=== PATIENT | female | born 1990 | race Caucasian/White ===

== ENCOUNTER → 2018-10-28 11:20 | Outpatient (CLI) | payer MEDICAID, SELFPAY ==
[2018-10-28 11:04] VITALS: BMI 31.7
[2018-10-28 11:41] LABS: Absolute Lymphocyte Count 1.32 X10^3/ul (0.83-4.51); Absolute Neutrophil Count 9.8 X10^3/uL (2.0-7.7); Basophil# 0.01 X10^3/uL; Basophil% 0.1 % (0-1); Eosinophil# 0.07 X10^3/uL; Eosinophils% 0.6 % (0-5); Hematocrit 36.6 % (37-47); Hemoglobin 12.1 g/dl (12.0-15.0); Lymphocyte # 1.32 X10^3/ul (4.0); Lymphocyte % 11.2 % (19-41); Mean Corp Hgb Conc 33.1 g/gl (32-36); Mean Corpuscular Hgb 28.2 pg (27.0-32.0); Mean Corpuscular Volume 85.3 fL (81-99); Mean Platelet Vol. 10.9 fl (6.2-12.0); Monocyte# 0.46 X10^3/uL; Monocyte% 3.9 % (0-10); Neutrophil # 9.84 X10^3/uL (2.7-7.7); Neutrophil % 83.9 % (47-70); Platelet Count 220 K/mm3 (150-450); RBC Distribution Width CV 13.2 % (11.6-14.6); RBC Distribution Width SD 40.7 fl (35.1-43.9); Red Blood Count 4.29 M/mm3 (4.2-5.4); White Blood Count 11.7 K/mm3 (4.4-11.0)
[2018-10-28 11:43] LABS: POSITIVE COUNT NO; POSITIVE DIFFERENTIAL NO; POSITIVE MORPHOLOGY NO
== END ==
PROVIDERS: Family Provider Family Medicine; PCP Family Medicine; Referring Provider Nurse Practitioner Women's Health; Visit Provider Nurse Practitioner Women's Health
DX: O09.90 Supervision of high risk pregnancy, unspecified, unspecified trimester (principal); O26.899 Other specified pregnancy related conditions, unspecified trimester; Z67.91 Unspecified blood type, Rh negative; Z3A.00 Weeks of gestation of pregnancy not specified
CPT/HCPCS: 36415; 85025; 86850; 86900

== ENCOUNTER 2018-11-30 18:50 | Outpatient (CLI) | payer MEDICAID, SELFPAY ==
[2018-11-16 15:09] VITALS: BMI 31.7
[2018-11-30 19:02] VITALS: BMI 34.0
[2018-11-30 20:10] LABS: Absolute Lymphocyte Count 1.87 X10^3/ul (0.83-4.51); Basophil# 0.03 X10^3/uL; Basophil% 0.2 % (0-1); Eosinophil# 0.13 X10^3/uL; Eosinophils% 0.9 % (0-5); Hematocrit 34.1 % (37-47); Hemoglobin 11.4 g/dl (12.0-15.0); Lymphocyte # 1.87 X10^3/ul (4.0); Lymphocyte % 12.6 % (19-41); Mean Corp Hgb Conc 33.4 g/gl (32-36); Mean Corpuscular Hgb 27.3 pg (27.0-32.0); Mean Corpuscular Volume 81.8 fL (81-99); Mean Platelet Vol. 10.7 fl (6.2-12.0); Monocyte# 0.72 X10^3/uL; Monocyte% 4.9 % (0-10); Neutrophil # 11.99 X10^3/uL (2.7-7.7); Neutrophil % 81.1 % (47-70); Platelet Count 219 K/mm3 (150-450); RBC Distribution Width CV 12.9 % (11.6-14.6); RBC Distribution Width SD 38.5 fl (35.1-43.9); Red Blood Count 4.17 M/mm3 (4.2-5.4); White Blood Count 14.8 K/mm3 (4.4-11.0)
[2018-11-30 20:11] LABS: POSITIVE COUNT NO; POSITIVE DIFFERENTIAL NO; POSITIVE MORPHOLOGY NO
[2018-11-30 20:21] LABS: Bacteria 0 SEEN /hpf (None Seen); Mucous, Urine 0 SEEN /hpf (<or=2+); Red Blood Cells-Urine 0 SEEN /hpf (0-5); Squamous Epithelial Cells - UA 0 SEEN /hpf (5-10); White Blood Cells 0 SEEN /hpf (0-5)
[2018-11-30 20:21] LABS: ALB/GLOB Ratio 0.8 RATIO (0.9-2.4); AST(SGOT) 42 U/L (15-37); Alanine Aminotransfer ALT/SGPT 56 U/L (13-56); Albumin, Serum 2.9 g/dL (3.2-5.0); Alkaline Phosphatase 102 U/L (45-117); Anion Gap 9 (5-15); BUN 4 mg/dL (7-18); BUN/Creat Ratio 10.8 RATIO (10-20); Calcium,Total 8.6 mg/dL (8.5-10.1); Chloride 109 mmol/L (98-107); Creatinine, Serum 0.37 mg/dL (0.55-1.02); EST Glomerular Filtration Rate 218 mL/min (>60); Est Glom Filt Rate - Afr Amer 264 mL/min (>60); Estimated Creatinine Clearance 232.35 ml/min; Globulin 3.7 g/dL (2.2-4.2); Glucose 78 mg/dL (74-106); Potassium 3.4 mmol/L (3.5-5.1); Protein, Total 6.6 g/dL (6.4-8.2); Sodium Level 138 mmol/L (136-145)
[2018-11-30 20:32] LABS: Color, Urine Yellow (Yellow); Glucose, Dipstick Normal (Normal); Ketone-Dipstick 50 mg/dl (Negative); Leukocyte Esterase-Dipstick Negative /ul (Negative); Nitrite-Dipstick Negative (Negative); Occult Blood-Urine Negative /ul (Negative); Protein-Dipstick Negative (Negative); Urine Bilirubin Dipstick Negative (Negative); Urine Clarity Clear (Clear); Urine Urobilinogen Normal (Normal); Urine pH 6.5 (5.0 - 8.0)
[2018-11-30 20:49] LABS: Creatinine, Urine (random) < 13.00 mg/dL (NO RANGE EST.); Protein, Urine (Random) < 6.0 mg/dL (<11.9)
--- NOTE | 2018-12-09 03:49 | OB.TRI.PN_ITS ---
Progress Notes Date of Service: 11/30/18 Progress Note: Patient presents with contractions no vaginal bleeding or loss of fluid heart tones 130s moderate variability reactive no decelerations category [address] [place]: Irregular contractions Assessment and plan false labor cervix closed DC home labor precautions and kick counts reactive NST Laboratory Studies: Laboratory Tests 11/30/18 11/30/18 11/30/18 Range/Units 20:12 20:12 19:44 WBC (4.4-11.0) K/mm3 RBC (4.2-5.4) M/mm3 Hgb (12.0-15.0) g/dl Hct (37-47) % MCV (81-99) fL MCH (27.0-32.0) pg MCHC (32-36) g/gl RDW (11.6-14.6) % RDW Differential (35.1-43.9) fl Plt Count (150-450) K/mm3 MPV (6.2-12.0) fl Immature Gran % (Auto) (0.0-0.9) % Neut % (Auto) (47-70) % Lymph % (Auto) (19-41) % [place] % (Auto) (0-10) % Eos % (Auto) (0-5) % Baso % (Auto) (0-1) % Absolute Neuts (auto) (2.0-7.7) X10^3/uL Absolute Lymphs (auto) (0.83-4.51) X10^3/ul Total Counted Sodium 138 (136-145) mmol/L Potassium 3.4 L (3.5-5.1) mmol/L Chloride 109 H (98-107) mmol/L Carbon Dioxide 20.0 L (21.0-32.0) mmol/L Anion Gap 9 (5-15) BUN 4 L (7-18) mg/dL Creatinine 0.37 L (0.55-1.02) mg/dL Estim Creat Clear Calc 232.35 ml/min Est GFR (MDRD) Af Amer 264 (>60) mL/min Est GFR (MDRD) Non-Af 218 (>60) mL/min BUN/Creatinine Ratio 10.8 (10-20) RATIO Glucose 78 (74-106) mg/dL Calcium 8.6 (8.5-10.1) mg/dL Total Bilirubin 0.30 (0.20-1.00) mg/dL AST 42 H (15-37) U/L ALT 56 (13-56) U/L Alkaline Phosphatase 102 (45-117) U/L Total Protein 6.6 (6.4-8.2) g/dL Albumin 2.9 L (3.2-5.0) g/dL Globulin 3.7 (2.2-4.2) g/dL Albumin/Globulin Ratio 0.8 L (0.9-2.4) RATIO Urine Color Yellow (Yellow) Urine Clarity Clear (Clear) Urine pH 6.5 (5.0 - 8.0) Ur Specific [place] 1.010 (1.002-1.030) Urine Protein Negative (Negative) mg/dl Urine Glucose (UA) Normal (Normal) mg/dl Urine Ketones 50 H (Negative) mg/dl Urine Occult Blood Negative (Negative) /ul Urine Nitrite Negative (Negative) Urine Bilirubin Negative (Negative) mg/dL Urine Urobilinogen Normal (Normal) mg/dl Ur Leukocyte Esterase Negative (Negative) /ul Urine RBC 0 SEEN (0-5) /hpf Urine WBC 0 SEEN (0-5) /hpf Ur Squamous Epith Cells 0 SEEN (5-10) /hpf Urine Bacteria 0 SEEN (None Seen) /hpf Urine Mucus 0 SEEN (<or=2+) /hpf U Random Total Protein < 6.0 (<11.9) mg/dL Urine Creatinine < 13.00 (NO RANGE EST.) mg/dL Protein/Creatinin Ratio TNP 11/30/18 Range/Units 19:44 WBC 14.8 H (4.4-11.0) K/mm3 RBC 4.17 L (4.2-5.4) M/mm3 Hgb 11.4 L (12.0-15.0) g/dl Hct 34.1 L (37-47) % MCV 81.8 (81-99) fL MCH 27.3 (27.0-32.0) pg MCHC 33.4 (32-36) g/gl RDW 12.9 (11.6-14.6) % RDW Differential 38.5 (35.1-43.9) fl Plt Count 219 (150-450) K/mm3 MPV 10.7 (6.2-12.0) fl Immature Gran % (Auto) 0.300 (0.0-0.9) % Neut % (Auto) 81.1 H (47-70) % Lymph % (Auto) 12.6 L (19-41) % Bath % (Auto) 4.9 (0-10) % Eos % (Auto) 0.9 (0-5) % Baso % (Auto) 0.2 (0-1) % Absolute Neuts (auto) 12.0 H (2.0-7.7) X10^3/uL Absolute Lymphs (auto) 1.87 (0.83-4.51) X10^3/ul Total Counted Not Reportable Sodium (136-145) mmol/L Potassium (3.5-5.1) mmol/L Chloride (98-107) mmol/L Carbon Dioxide (21.0-32.0) mmol/L Anion Gap (5-15) BUN (7-18) mg/dL Creatinine (0.55-1.02) mg/dL Estim Creat Clear Calc ml/min Est GFR (MDRD) Af Amer (>60) mL/min Est GFR (MDRD) Non-Af (>60) mL/min BUN/Creatinine Ratio (10-20) RATIO Glucose (74-106) mg/dL Calcium (8.5-10.1) mg/dL Total Bilirubin (0.20-1.00) mg/dL AST (15-37) U/L ALT (13-56) U/L Alkaline Phosphatase (45-117) U/L Total Protein (6.4-8.2) g/dL Albumin (3.2-5.0) g/dL Globulin (2.2-4.2) g/dL Albumin/Globulin Ratio (0.9-2.4) RATIO Urine Color (Yellow) Urine Clarity (Clear) Urine pH (5.0 - 8.0) Ur Specific [place] (1.002-1.030) Urine Protein (Negative) mg/dl Urine Glucose (UA) (Normal) mg/dl Urine Ketones (Negative) mg/dl Urine Occult Blood (Negative) /ul Urine Nitrite (Negative) Urine Bilirubin (Negative) mg/dL Urine Urobilinogen (Normal) mg/dl Ur Leukocyte Esterase (Negative) /ul Urine RBC (0-5) /hpf Urine WBC (0-5) /hpf Ur Squamous Epith Cells (5-10) /hpf Urine Bacteria (None Seen) /hpf Urine Mucus (<or=2+) /hpf U Random Total Protein (<11.9) mg/dL Urine Creatinine (NO RANGE EST.) mg/dL Protein/Creatinin Ratio
== END 2018-11-30 21:30 | disposition home or self-care (01) ==
LOC: WPOUT 18:56 → WP 18:57
PROVIDERS: Family Provider Family Medicine; PCP Family Medicine; Referring Provider Obstetrics & Gynecology; Visit Provider Obstetrics & Gynecology
DX: O47.9 False labor, unspecified (principal); Z3A.00 Weeks of gestation of pregnancy not specified
CPT/HCPCS: 36415; 59025; 59050; 80053; 81001; 82570; 84156; 85025; 87086; 87088; 94760; 99218; G0378

== ENCOUNTER → 2018-12-21 10:38 | Outpatient (CLI) | payer MEDICAID, SELFPAY ==
[2018-12-21 10:32] VITALS: BMI 34.0
[2018-12-21 12:13] LABS: Rubella IgG 128.4 IU/mL
[2018-12-22 17:08] LABS: HEPATITIS B SURFACE AG Negative (Negative)
[2018-12-25 03:40] LABS: Rapid Plasmin Reagin (RPR) NONREACTIVE (NONREACTIVE)
== END ==
PROVIDERS: Family Provider Family Medicine; PCP Family Medicine; Visit Provider Obstetrics & Gynecology
DX: O09.93 Supervision of high risk pregnancy, unspecified, third trimester (principal); Z3A.00 Weeks of gestation of pregnancy not specified
CPT/HCPCS: 36415; 86592; 86762; 87340

== ENCOUNTER → 2019-01-05 13:48 | Outpatient (CLI) | payer MEDICAID, SELFPAY ==
[2019-01-05 11:10] VITALS: BMI 34.0
== END ==
PROVIDERS: Family Provider Family Medicine; PCP Family Medicine; Referring Provider Obstetrics & Gynecology; Visit Provider Obstetrics & Gynecology
DX: O09.93 Supervision of high risk pregnancy, unspecified, third trimester (principal); Z3A.37 37 weeks gestation of pregnancy
CPT/HCPCS: 87081; 87086; 87088

== ENCOUNTER → 2019-01-07 12:24 | Outpatient (CLI) | payer MEDICAID, SELFPAY ==
[2019-01-05 11:10] VITALS: BMI 34.0
--- NOTE | 2019-01-07 12:26 | US_ITS ---
HISTORY: Assess gestational age. EXAM/TECHNIQUE: US OB Limited 1 Or More Fetus: Transabdominal images. COMPARISON: None. FINDINGS: # of images incl. paperwork: 38 Single fetus in cephalic presentation. cardiac activity observed, heart rate 142 bpm. Posterior grade 3 placenta, no evidence of previa or abruption. Amnionic fluid volume within normal limits. ABEL 7.8. Maternal cervix not visible. Biometry: Biparietal diameter 9.4 cm, 38 weeks 2 days. Head circumference 34.5 cm, 40 weeks 0 days. Abdominal circumference 33.6 cm, 37 weeks 4 days. Femoral length 7.5 cm, 38 weeks 4 days. Estimated weight 3405 g; +/-497 g. age by this ultrasound 38 weeks 5 days, MIHIR 01/16/19. LMP 04/18/18 gives gestational age 37 weeks 5 days and MIHIR 01/23/19. US/OB Limited With Biometrics IMPRESSION: Single intrauterine as above. at 0500 Reported and signed by: Joseph Scott MD Electronically Signed: Joseph Scott, at 4:59 EDT Tel , Service support ,
== END ==
PROVIDERS: Family Provider Family Medicine; PCP Family Medicine; Referring Provider Obstetrics & Gynecology; Visit Provider Obstetrics & Gynecology
DX: O26.849 Uterine size-date discrepancy, unspecified trimester (principal); Z3A.00 Weeks of gestation of pregnancy not specified
CPT/HCPCS: 76816

== ENCOUNTER 2019-01-24 13:35 | Inpatient (IN) | payer MEDICAID, SELFPAY ==
[2019-01-21 14:20] VITALS: BMI 34.0
[2019-01-24 13:39] VITALS: BMI 35.1
[2019-01-24] MEDS: Lactated Ringers 1,000 ML 50 ML IV ×3 (14:05→16:21)
[2019-01-24 14:25] LABS: Absolute Lymphocyte Count 0.82 X10^3/ul (0.83-4.51); Absolute Neutrophil Count 20.4 X10^3/uL (2.0-7.7); Basophil# 0.01 X10^3/uL; Eosinophil# 0.01 X10^3/uL; Hematocrit 35.4 % (37-47); Hemoglobin 11.9 g/dl (12.0-15.0); Lymphocyte # 0.82 X10^3/ul (4.0); Lymphocyte % 3.6 % (19-41); Mean Corp Hgb Conc 33.6 g/gl (32-36); Mean Corpuscular Hgb 26.1 pg (27.0-32.0); Mean Corpuscular Volume 77.6 fL (81-99); Mean Platelet Vol. 11.5 fl (6.2-12.0); Monocyte# 1.19 X10^3/uL; Monocyte% 5.3 % (0-10); Neutrophil # 20.44 X10^3/uL (2.7-7.7); Neutrophil % 90.7 % (47-70); Platelet Count 197 K/mm3 (150-450); RBC Distribution Width CV 14.4 % (11.6-14.6); Red Blood Count 4.56 M/mm3 (4.2-5.4); White Blood Count 22.6 K/mm3 (4.4-11.0)
[2019-01-24 14:27] LABS: POSITIVE COUNT NO; POSITIVE DIFFERENTIAL YES; POSITIVE MORPHOLOGY NO
[2019-01-24 14:28] LABS: Differential Indicated SCAN CRITERIA MET
[2019-01-24 14:50] LABS: Differential Comment SCANNED
--- NOTE | 2019-01-24 15:06 | PCM.HP.OB ---
- Problem List (1) Active labor at term Status: Acute (2) Spontaneous rupture of membranes Status: Acute (3) Rh negative status during Status: Acute Qualifiers: Comment: rhogam PRN and at 28 weeks (4) History of premature rupture of membranes (PPROM) Status: Acute Comment: extensive counseling recommend IM progesterone injections due to history, patient declines (5) Previous delivery affecting Status: Acute Comment: desires TOLAC, consent signed. (6) Status: Acute Qualifiers: Comment: genetic screening normal, anatomy scan normal obtain records from [facility] (7) Supervision of high-risk Status: Acute Qualifiers: Comment: PRR MIHIR 01/23/19 PC Hussein Talavera Levi, [place], Veronica Mike History Date of Admission: 01/24/19 Final MIHIR: 01/23/19 Gestational age: 40 Weeks and 1 Days History of this : This is a 28 year-old, , at 40w1d weeks gestational age sent in active labor at 1 to 2 cm of dilation with clear loss of fluid since 930 this morning. Patient complains of significant discomfort with contractions however resolves and goes away and she is completely comfortable in between contractions. Patient denies any persistent incisional pain or tenderness. She admits some bloody show but no ranulfo vaginal bleeding. Surgical History: Surgical History (Last Reviewed 01/21/19 @ 14:01 by Hoda Foley) delivery delivered O82 x1 PROM Allergies No Known Allergies Allergy (Verified 01/21/19 14:02) Home Medications: Home Medications vitamin#30 30 mg iron-10 mg iron-folic acid 1 mg-omg3 capsule 1 cap PO DAILY cap 09/08/18 Smoking Status: Never smoker Alcohol: None Number of Fetus(es): 1 Heart Tracin minimal to moderate variability no accelerations, upon presentation initially one late deceleration and one prolonged deceleration. There is currently moderate variability with resolution of decelerations but no accelerations present. TOCO Analysis: q2-4 History Past Pregnancies: Past Pregnancies Pregancy History 6 Elective abortions Hx Para 5 Spontaneous abortions Hx # Term Pregnancies Ectopic pregnancies Hx # Pregnancies Multiple births # of living children Past Pregnancies Del. 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 2015 Arianna 27 live - Female Delivery Date: On 09/08/18 @ 11:17 Umm Uribe PROM at 27, breech, chorioamnionitis Expected Delivery Route/Plan TOLAC Specific Issue/Plans flu vaccine: declined tdap vaccine: declined rhogam: given at 28 weeks LARC form signed: declines labor support person: Anabella Padilla/anderson pain management: natural cut cord/dad catch: yes : yes PP control planned: discussed possible routes of delivery and associated risks: avoid if able special requests: Labs: Mom's Problem List Problem Status Onset Code Active labor at term Acute Spontaneous rupture of membranes Acute Mom's Labs & Results 01/24/19 01/24/19 14:03 14:03 WBC 22.6 H RBC 4.56 Hgb 11.9 L Hct 35.4 L MCV 77.6 L MCH 26.1 L MCHC 33.6 RDW 14.4 RDW Differential 39.0 Plt Count 197 MPV 11.5 Immature Gran % (Auto) 0.400 Neut % (Auto) 90.7 H Lymph % (Auto) 3.6 L [place] % (Auto) 5.3 Eos % (Auto) 0.0 Baso % (Auto) 0.0 Absolute Neuts (auto) 20.4 H Absolute Lymphs (auto) 0.82 L Total Counted Not Reportable Differential Comment SCANNED Blood Type Pending Antibody Screen Pending Labs HIV/AIDS Non-Reactive Current Obstetrical History Gestational Diabetes No Incompetent Cervix No Infertility No IUGR No Macrosomia No Hypertension/Pre-eclampsia No Placenta Previa/Abruption No PTL/PROM No Uterine anomaly No Oligohydramnios No Polyhydramnios No Multiple gestation No Past Medical History Asthma No Diabetes No Hypertension No Heart disease No Mitral valve prolapse No Neurologic/Seizure disorder/ No Migraines Kidney disease No Liver disease No Varicosities No Clotting disorders/Hx of DVT No Thyroid Dysfunction No Other medical diseases Yes: Arthritis in knees Psychiatric disorders No Major trauma No Sleep apnea No Mammogram in the last 2 years Yes Social History Smoking Status Never smoker Expected Infant Delivery Method: Review of Systems Constitutional: Denies: Fever, Malaise Eyes: Denies: Blurred vision, Vision Change HEENT: Denies: Head Aches, Visual Changes Cardiovascular: Denies: Chest Pain, Palpitations Respiratory: Denies: Cough, Shortness of Breath, Wheezing Gastrointestinal: Denies: Abdominal Pain, Diarrhea, Nausea, Vomiting Genitourinary: Denies: Dysuria, Hematuria Musculoskeletal: Denies: Joint Pain, Muscle pain Skin: Denies: Lesions, Rash Neurological: Denies: Blurred vision, Focal weakness, Headaches Psychiatric: Denies: Anxiety, Depression Endocrine: Denies: Heat/ Cold Intolerance Hematologic/ Lymphatic: Denies: Easy Bruising, Easy Bleeding Physical Exam General: Alert, Cooperative, No apparent distress HEENT: Atraumatic, Normocephalic. Negative for: Thyromegaly, Lymphadenopathy Cardiovascular: Regular rate Lungs: Normal air movement Abdomen: Soft, Non Tender, Gravid Neurological: Neuro grossly intact PUBLICATIONS DESIGNER: Normal external genitalia. Negative for: Vulvar lesions Estimated gestational size: Appropriate for gestational size Presentation: Cephalic Cervix Dilation (cm): 1.5 Station: -2 Effacement (%): 60 Assessment/Plan All Active Problems (Last Reviewed 01/21/19 @ 14:01 by Hoda Foley) Active labor at term (Acute) Spontaneous rupture of membranes (Acute) Rh negative status during (Acute) History of premature rupture of membranes (PPROM) (Acute) Previous delivery affecting (Acute) (Acute) Supervision of high-risk (Acute) This is a 28 year-old, at 40w1d weeks gestational age presents IAL TOLAC Patient presents in active labor with spontaneous rupture membranes at home at 9:30 AM. IV started and IV fluids running due to tachycardia. Moderate variability present patient positioned on her knees per her request. Extensive discussion was made with the patient and her about their wishes for management during labor. Consent form was reviewed and at the request of the patient and her delivery was removed from the consent form as well as additional information on performing any medically necessary procedures at the time of surgery or procedure. Patient is not consenting to a at this time if it would be needed however after further discussion with the patient and her they state that if it is needed in an emergency they will sign a consent form at this time. Consent form was given to the patient and her to review at present so that way it is ready for them to sign if need be for a delivery with the correct vergabe that they are comfortable with. gbs neg rh negative- rhogam PRN desires minimal intervention. destination coordinator present and cooperative.
--- NOTE | 2019-01-24 17:56 | PCM.PN.BLA ---
Progress Note Position changes were made IUPC catheter was placed and amnioinfusion was started for variable decelerations that were noted. Decelerations resolved with position changes. heart tones 175-180 variability minimal- moderate, no accelerations. cat II tracing. thick meconium noted at 510 and patient checked and noted to be 7 to 8 cm having made a quick change in cervical exam. continue expectant management for eminent delivery
--- NOTE | 2019-01-24 18:04 | PCM.OPRPT ---
Problem List (1) Active labor at term Status: Acute (2) Spontaneous rupture of membranes Status: Acute (3) Rh negative status during Status: Acute Qualifiers: Comment: rhogam PRN and at 28 weeks (4) History of premature rupture of membranes (PPROM) Status: Acute Comment: extensive counseling recommend IM progesterone injections due to history, patient declines (5) Previous delivery affecting Status: Acute Comment: desires TOLAC, consent signed. (6) Status: Acute Qualifiers: Comment: genetic screening normal, anatomy scan normal obtain records from [facility] (7) Supervision of high-risk Status: Acute Qualifiers: Comment: PRR MIHIR 01/23/19 PC Hussein Talavera Levi, [place], Veronica Mike Vaginal Delivery Maternal Presentation: Active Labor 28-year-old G6, P5 at 40 weeks 1 day presents in active labor. She desired a trial of labor after and declined to sign a consent form for section upon admission to the unit. she had spontaneous rupture membranes with clear fluid at 9:30 AM. Patient had regular contractions increasing in frequency and intensity since then. Amniotic Membrane Rupture Type: Spontaneous at home Amniotic Fluid Description: Clear, Thick meconium Final MIHIR: 01/23/19 Gestational age: 40 Weeks and 1 Days Date of Procedure: 01/24/19 Pre-Operative Diagnosis: tolac, meconium Post-Operative Diagnosis: Surgery/ Procedure Performed: Spontaneous Vaginal Delivery Type of Anesthesia: None Presentation: CORIE Placental Delivery Description: Spontaneous Placenta Disposition: [facility] Cord Vessel Description: 3 Vessels Nuchal Cord Compression: With compression Cord Gases drawn per routine: ABG, VBG Cord Entanglement: Around neck x 2, tight Estimated Blood Loss: 250 A gender: Male Episiotomy Description: None Laceration: None Complications: - - meconium at , cord pH at arterial 7.126, BE -10
--- NOTE | 2019-01-24 19:03 | DCINST_ITS ---
Discharge Diet: No Restrictions Discharge Activity: Return to Normal Activity, May not drive while taking narcotic pain medications., May Shower May resume sexual activity in: 4-6 weeks Call your doctor if your incision/area has: Continuous Slow Oozing, Sudden Increased Bleeding, Increased Pain/ Swelling, Increased Redness, Foul Smelling Discharge Additional Instructions: If you experience any of the following, contact your healthcare provider. * Bleeding that soaks a pad every hour for 2 hours * Fever 100.4 or higher * Unrelieved incision or abdominal pain * Swelling, redness, discharge or bleeding from your incision or episiotomy site * Your incision begins to separate * Problems urinating (including inability to urinate or burning while urinating). * Visual changes * Severe headache * Flu-like symptoms * Pain or redness in one of both of your breasts * Pain, warmth, tenderness or swelling in your legs, especially the calf area * Frequent nausea and vomiting * Symptoms of depression or anxiety If you experience any of the following, call 911 or go to the nearest Emergency Room. * Chest pain * Problems breathing * Seizure activity * Partial or complete paralysis of a body part, slurred speech, weakness or drooping of the face, or a sudden inability to walk or hold your balance Allergies/Adverse Reactions: Allergies No Known Allergies Allergy (Verified 01/21/19 14:02) Medications to take at Discharge vitamin#30 30 mg iron-10 mg iron-folic acid 1 mg-omg3 capsule 1 cap PO DAILY cap 09/08/18 Please Follow Up With: Umm Uribe MD - [phone] When: Call to make an appointment with your doctor in 6 weeks. If you had elevated Blood pressure or 4th degree laceration you will need to be seen in 2 weeks. Primary Care Physician: Kade Welsh MD [Primary Care Provider] - Test Results: Test results from this visit will be discussed in further detail at your follow- up appointment, if applicable.
--- NOTE | 2019-01-24 19:03 | PCM.DCVAG ---
Discharge Diet: No Restrictions Discharge Activity: Return to Normal Activity, May not drive while taking narcotic pain medications., May Shower May resume sexual activity in: 4-6 weeks Call your doctor if your incision/area has: Continuous Slow Oozing, Sudden Increased Bleeding, Increased Pain/ Swelling, Increased Redness, Foul Smelling Discharge Additional Instructions: If you experience any of the following, contact your healthcare provider. Bleeding that soaks a pad every hour for 2 hours Fever 100.4 or higher Unrelieved incision or abdominal pain Swelling, redness, discharge or bleeding from your incision or episiotomy site Your incision begins to separate Problems urinating (including inability to urinate or burning while urinating). Visual changes Severe headache Flu-like symptoms Pain or redness in one of both of your breasts Pain, warmth, tenderness or swelling in your legs, especially the calf area Frequent nausea and vomiting Symptoms of depression or anxiety If you experience any of the following, call 911 or go to the nearest Emergency Room. Chest pain Problems breathing Seizure activity Partial or complete paralysis of a body part, slurred speech, weakness or drooping of the face, or a sudden inability to walk or hold your balance Allergies/Adverse Reactions: Allergies No Known Allergies Allergy (Verified 01/21/19 14:02) Medications to take at Discharge vitamin#30 30 mg iron-10 mg iron-folic acid 1 mg-omg3 capsule 1 cap PO DAILY cap 09/08/18 Please Follow Up With: Umm Uribe MD - [phone] When: Call to make an appointment with your doctor in 6 weeks. If you had elevated Blood pressure or 4th degree laceration you will need to be seen in 2 weeks. Primary Care Physician: Kade Welsh MD [Primary Care Provider] - Test Results: Test results from this visit will be discussed in further detail at your follow-up appointment, if applicable.
--- NOTE | 2019-01-24 19:15 | NURSING ---
Report given to Macy Inman RN. She will assume care of patient at this time. Patient up to nursery in wheelchair to visit .
[2019-01-24 21:28] VITALS: BP 121/60; PULSE 81; RESP 17; TEMP 36.7
--- NOTE | 2019-02-01 16:59 | NURSING ---
Voicemail left. Baby transferred to [facility]. Joana CARRERA
== END 2019-01-24 22:12 | disposition home or self-care (01) | DRG 560 ==
PROVIDERS: Admitting Provider Obstetrics & Gynecology; Family Provider Family Medicine; PCP Family Medicine; Referring Provider Obstetrics & Gynecology; Visit Provider Obstetrics & Gynecology
DX: O34.219 Maternal care for unspecified type scar from previous cesarean delivery (principal); O69.1XX0 Labor and delivery complicated by cord around neck, with compression, not applicable or unspecified; O76 Abnormality in fetal heart rate and rhythm complicating labor and delivery; O77.0 Labor and delivery complicated by meconium in amniotic fluid; M17.0 Bilateral primary osteoarthritis of knee; Z67.91 Unspecified blood type, Rh negative; Z3A.40 40 weeks gestation of pregnancy; Z37.0 Single live birth
CPT/HCPCS: 59025; 59050; 85025; 85461; 86850; 86900; 90384; 99218; J7120; G0378; J2790

== ENCOUNTER → 2019-02-26 16:31 | Outpatient (CLI) | payer MEDICAID, SELFPAY ==
[2019-02-26 14:09] VITALS: BMI 35.1
[2019-03-04 10:39] LABS: HPV APTIMA, High Risk Negative (Negative)
== END ==
PROVIDERS: Family Provider Family Medicine; PCP Family Medicine; Referring Provider Obstetrics & Gynecology; Visit Provider Obstetrics & Gynecology
DX: Z12.4 Encounter for screening for malignant neoplasm of cervix (principal)
CPT/HCPCS: 87624; 88175; G0145

== ENCOUNTER 2019-04-12 21:02 | Emergency (ER) | payer MEDICAID, SELFPAY ==
[2019-03-24 11:02] VITALS: BMI 31.3
[2019-04-12 21:02] VITALS: BP 143/89; PULSE 53; RESP 16; TEMP 36.2; O2SAT 98; BMI 31.1
--- NOTE | 2019-04-12 21:22 | ED.VIS.GEN ---
History of Present Illness Chief Complaint: Diarrhea Informant: Patient Onset: Days Context: Gradual Onset Timing: Intermittent Current Severity: Moderate Maximum Severity: Moderate Narrative: The patient presents to the emergency department diarrhea. Her recently traveled from [place] and was found to have traveler's diarrhea. She states that he was treated with Cipro and was doing better. Over the past 3 days, she is began have diarrhea. She describes some abdominal cramping. She denies any fevers or chills. She denies any recent travel. She is otherwise been in her normal state of health. Prior similar symptoms: No Recent Illness/Hospitalization: No Past Medical History - Allergies and Home Meds Allergies/Adverse Reactions: Allergies No Known Allergies Allergy (Verified 03/24/19 11:02) Primary Care Physician: Kade Welsh MD [Primary Care Provider] - Prior records reviewed: Yes Surgical History: no surgical history Lives: With Family Smoking Status: Never smoker Review of Systems General: Denies: Chills, Fever, Sweats Eyes: Denies: Visual changes - bilaterally, Diplopia ENT: Denies: Rhinorrhea, Sore throat Cardiovascular: Denies: Chest pain, Palpitations Respiratory: Denies: Dyspnea, Cough, Dyspnea on exertion Gastrointestinal: Reports: Abdominal pain, Diarrhea Genitourinary: Denies: Dysuria, Hematuria, Frequency Musculoskeletal: Denies: Back pain, Extremity Pain Skin: Denies: Rash, Wounds Neurological: Denies: Headache, Weakness, Numbness Physical Exam Vital Signs/Narrative: Vital Signs Temp Pulse Resp BP Pulse Ox 04/12/19 21:02 97.1 F L 53 L 16 143/89 H 98 General: Well nourished, Well developed, No Acute Distress Head: Normocephalic, Atraumatic Eyes: Perrl, EOMI ENT: Moist mucous membranes, No rhinorrhea Neck: Supple, Nontender Cardiovascular: Regular rate, Regular rhythm, No murmurs Respiratory: No distress, CTA bilaterally, Chest nontender Abdomen: Soft, Nontender, Nondistended, Normal bowel sounds Back: Nontender, Normal Inspection Extremities: Nontender, No edema Skin: Normal color, No rash Neurological: Alert, Oriented x3, Cranial nerves II-XII grossly intact, Normal Strength, Normal Sensation Psychological: Normal affect, Normal Mood Diagnostic/Tx/Re-eval - Medical Decision Making Patient presents with diarrhea with positive exposure to traveler's diarrhea. Her abdomen is soft and nontender. I did discuss options with the patient she just wants to attempt outpatient therapy. I feel this is reasonable. She is not tachycardic. She does not have a fever. Patient will be started on Cipro and continued on this for 5 days. She was counseled on concerning symptoms and reasons to return. She will be discharged home. Impression 1. Traveler's diarrhea ED Disposition - Plan for ED Patient: Instructions: DIARRHEA, Bacterial (4y-Adult) Prescriptions: Ciprofloxacin [Cipro] 500 mg PO BID #10 tab Prescription Printed Referrals: Kade Welsh MD [Primary Care Provider] -
[2019-04-12] MEDS: Ciprofloxacin 500 MG Tablet PO (21:38)
== END 2019-04-12 21:39 | disposition home or self-care (01) ==
LOC: ED 21:16
PROVIDERS: Emergency Provider Emergency Medicine; Family Provider Family Medicine; PCP Family Medicine
DX: R19.7 Diarrhea, unspecified (principal)
CPT/HCPCS: 99283

== ENCOUNTER → 2020-06-01 14:17 | Outpatient (CLI) | DX: Z67.91 Unspecified blood type, Rh negative (principal) | CPT/HCPCS: 36415; 86850; 86900; 86901 ==

== ENCOUNTER → 2020-07-10 11:04 | Outpatient (CLI) | payer MEDICAID, SELFPAY ==
[2020-06-01 13:51] VITALS: BMI 27.1
[2020-07-10 11:36] LABS: hCG Titer Quant., Serum 237 mIU/mL (1-3)
== END ==
PROVIDERS: Referring Provider Obstetrics & Gynecology; Visit Provider Obstetrics & Gynecology
DX: N91.2 Amenorrhea, unspecified (principal)
CPT/HCPCS: 36415; 84702

== ENCOUNTER → 2020-07-12 06:24 | Outpatient (CLI) | payer MEDICAID, SELFPAY ==
[2020-06-01 13:51] VITALS: BMI 27.1
[2020-07-12 08:37] LABS: hCG Titer Quant., Serum 524 mIU/mL (1-3)
== END ==
PROVIDERS: Referring Provider Obstetrics & Gynecology; Visit Provider Obstetrics & Gynecology
DX: Z34.90 Encounter for supervision of normal pregnancy, unspecified, unspecified trimester (principal)
CPT/HCPCS: 36415; 84702

== ENCOUNTER → 2020-08-07 | Outpatient (CLI) | payer MEDICAID, SELFPAY ==
[2020-08-07 09:27] VITALS: BMI 24.6
[2020-08-07 13:50] LABS: Amphetamine Urine VISTA NEGATIVE (<1000 ng/mL); Barbiturate Urine VISTA NEGATIVE (< 200 ng/mL); Benzodiazepine Urine VISTA NEGATIVE (< 200 ng/mL); Cocaine Urine VISTA NEGATIVE (< 300 ng/mL); Ecstacy Urine VISTA NEGATIVE (< 500 ng/mL); Methadone Urine VISTA NEGATIVE (< 300 ng/mL); PCP Urine VISTA NEGATIVE (< 25 ng/mL); THC Urine VISTA NEGATIVE (< 50 ng/mL); Vista UDS pH Range 6
== END | disposition home or self-care (01) ==
LOC: LABSPEC 12:57
PROVIDERS: Referring Provider Obstetrics & Gynecology; Visit Provider Obstetrics & Gynecology
DX: Z34.90 Encounter for supervision of normal pregnancy, unspecified, unspecified trimester (principal)
CPT/HCPCS: 80307; 87086; 87088

== ENCOUNTER → 2020-08-21 06:53 | Outpatient (CLI) | payer MEDICAID, SELFPAY ==
[2020-08-07 09:27] VITALS: BMI 24.6
[2020-08-21 07:23] LABS: Absolute Lymphocyte Count 1.66 X10^3/uL (0.83-4.51); Absolute Neutrophil Count 5.4 X10^3/uL (2.0-7.7); Basophil# 0.03 X10^3/uL; Basophil% 0.4 % (0-1); Eosinophil# 0.11 X10^3/uL; Eosinophils% 1.4 % (0-5); Hematocrit 35.8 % (37-47); Hemoglobin 12.1 g/dL (12.0-15.0); Lymphocyte # 1.66 X10^3/ul (4.0); Lymphocyte % 21.8 % (19-41); Mean Corp Hgb Conc 33.8 g/dL (32-36); Mean Corpuscular Hgb 28.9 pg (27.0-32.0); Mean Corpuscular Volume 85.6 fL (81-99); Mean Platelet Vol. 11.8 fl (6.2-12.0); Monocyte# 0.34 X10^3/uL; Monocyte% 4.5 % (0-10); NRBC Flagged by Analyzer 0 % (0-5); Neutrophil # 5.44 X10^3/uL (2.7-7.7); Neutrophil % 71.5 % (47-70); Platelet Count 201 K/mm3 (150-450); RBC Distribution Width SD 40.2 fl (35.1-43.9); Red Blood Count 4.18 M/mm3 (4.2-5.4); White Blood Count 7.6 K/mm3 (4.4-11.0)
[2020-08-21 07:59] LABS: NATERA MAILED SPECIMEN
[2020-08-21 08:30] LABS: HIV - WCH Non-Reactive (Nonreactive); Hepatitis B Surface Antigen Non-Reactive (Nonreactive); Hepatitis C Antibody Non-Reactive (Nonreactive); Rubella IgG Reactive (Nonreactive)
[2020-08-24 01:36] LABS: Rapid Plasmin Reagin (RPR) NONREACTIVE (NONREACTIVE)
== END ==
PROVIDERS: Referring Provider Obstetrics & Gynecology; Visit Provider Obstetrics & Gynecology
DX: Z34.81 Encounter for supervision of other normal pregnancy, first trimester (principal)
CPT/HCPCS: 36415; 85025; 86592; 86703; 86762; 86803; 86850; 86900; 86901; 87340

== ENCOUNTER → 2020-10-06 | Outpatient (CLI) | payer MEDICAID, SELFPAY ==
[2020-10-06 09:17] VITALS: BMI 28.4
[2020-10-06 15:42] LABS: Chlamydia Trachomatis by PCR Negative (Negative); Neisserai gonorrhoeae by PCR Negative (Negative); Probe Check PASS; Sample Adequacy Control PASS; Specimen Processing Control PASS
== END | disposition home or self-care (01) ==
LOC: LABSPEC 12:54
PROVIDERS: Referring Provider Obstetrics & Gynecology; Visit Provider Obstetrics & Gynecology
DX: Z34.90 Encounter for supervision of normal pregnancy, unspecified, unspecified trimester (principal)
CPT/HCPCS: 87491; 87591

== ENCOUNTER → 2020-10-26 11:27 | Outpatient (CLI) | payer MEDICAID, SELFPAY ==
[2020-10-06 09:17] VITALS: BMI 28.4
--- NOTE | 2020-10-26 11:28 | US_ITS ---
STUDY: SECOND AND THIRD TRIMESTER OBSTETRICAL ULTRASOUND REASON FOR EXAM: Female, 30 years old routine survey LMP: 06/12/2020 TECHNIQUE: Transabdominal and Transvaginal TECHNICAL QUALITY: Adequate. PRIOR ULTRASOUND: None. FINDINGS: There is a single intrauterine fetus. The fetus is in a cephalic presentation. There is demonstrated cardiac activity with a heart rate of 162 bpm. There is a normal amniotic fluid volume. The largest amniotic fluid pocket measures 4.5 cm. . The placenta is anterior in location and is not low lying. There are Grade 0 placental changes. The cervix measures 4.77 cm in length. The bilateral adnexal regions are normal. BIOMETRY: BPD: 4.5 cm: 19 weeks, 4 days HC: 16.9 cm: 19 weeks, 4 days AC: 15.33 cm: 20 weeks, 3 days FL: 2.79 cm: 18 weeks, 3 days age by current US: 19 weeks, 2 days. MIHIR by current US: 03/20/2021. Estimated weight: 306 grams, +/- 46 grams, 57.8 %. ANATOMY: Gender: Male Cranium: Normal lateral ventricles. Normal choroid plexus. Normal cerebellum. Normal cisterna magna. Normal face, nose and lips. Chest: Normal 4-chamber heart. Abdomen/Pelvis: Normal diaphragm. Normal stomach. Normal abdominal wall. Normal cord insertion. Normal 3 vessel cord. Normal kidneys. Renal pelves are mildly dilated both measuring 0.4 cm. Normal bladder. Spine: Normal cervical spine. Normal thoracic spine. Normal lumbar spine. Normal sacrum. Extremities: Normal bilateral upper extremities. Normal bilateral lower extremities. US/OB Anatomy Scan IMPRESSION: Single live intrauterine at 19 weeks, 2 days by current ultrasound MIHIR of 03/20/2021. Heart rate of 162 bpm. No suspicious sonographic findings, incidental note is made of mildly dilated renal pelves at 0.4 cm. Electronically Signed: Fady Francois MD at 17:16 EST , Service support ,
== END ==
PROVIDERS: Referring Provider Obstetrics & Gynecology; Visit Provider Obstetrics & Gynecology
DX: O09.90 Supervision of high risk pregnancy, unspecified, unspecified trimester (principal); Z34.90 Encounter for supervision of normal pregnancy, unspecified, unspecified trimester
CPT/HCPCS: 76805; 76817

== ENCOUNTER → 2020-12-25 11:05 | Outpatient (CLI) | payer MEDICAID, SELFPAY ==
[2020-10-06 09:17] VITALS: BMI 28.4
[2020-11-30 09:19] VITALS: BMI 31.3
--- NOTE | 2020-12-25 11:06 | US_ITS ---
STUDY: SECOND AND THIRD TRIMESTER OBSTETRICAL ULTRASOUND - LIMITED REASON FOR EXAM: Female, 30 years old growth at 28 weeks/ recheck hydronephrosis LMP: PRIOR ULTRASOUND: 10/26/2020 TECHNIQUE: Transabdominal TECHNICAL QUALITY: Adequate. FINDINGS: There is a single intrauterine fetus. The fetus is in a cephalic presentation. There is demonstrated cardiac activity with a heart rate of 147 bpm. There is a normal amniotic fluid volume. The largest amniotic fluid pocket measures 4.7 cm. The amniotic fluid index (ABEL) is cm. The placenta is anterior in location and is not low lying. There are Grade 1 placental changes. The cervix measures 5.5 cm cm in length. BIOMETRY: BPD: 7.3 cm: 29 weeks, 1 days HC: 26.7 cm: 29 weeks, 0 days AC: 24.8 cm: 29 weeks, 0 days FL: 5.4 cm: 28 weeks, 4 days Age by LMP: 28 weeks, 0 days. MIHIR by LMP: 03/19/2021. age by current US: 28 weeks, 5 days. MIHIR by current US: 03/14/2021. Estimated weight: 1321 grams, +/- 198 grams, 75 percentile. Gender: US/OB Limited With Biometrics IMPRESSION: Living intrauterine of 28 weeks 5 days as described above. Electronically Signed: William Longoria MD at 17:17 EDT Tel , Service support ,
== END ==
PROVIDERS: Referring Provider Obstetrics & Gynecology; Visit Provider Obstetrics & Gynecology
DX: O09.90 Supervision of high risk pregnancy, unspecified, unspecified trimester (principal); Z87.59 Personal history of other complications of pregnancy, childbirth and the puerperium; N13.30 Unspecified hydronephrosis
CPT/HCPCS: 76816

== ENCOUNTER → 2020-12-28 09:33 | Outpatient (CLI) | payer MEDICAID, SELFPAY ==
[2020-12-28 09:04] VITALS: BMI 31.3
[2020-12-28 09:46] LABS: Absolute Lymphocyte Count 1.14 X10^3/uL (0.83-4.51); Absolute Neutrophil Count 6.4 X10^3/uL (2.0-7.7); Basophil# 0.02 X10^3/uL; Basophil% 0.2 % (0-1); Eosinophil# 0.08 X10^3/uL; Hematocrit 38.2 % (37-47); Hemoglobin 12.4 g/dL (12.0-15.0); Lymphocyte # 1.14 X10^3/ul (0.83-4.51); Lymphocyte % 14.2 % (19-41); Mean Corp Hgb Conc 32.5 g/dL (32-36); Mean Corpuscular Hgb 29.4 pg (27.0-32.0); Mean Corpuscular Volume 90.5 fL (81-99); Mean Platelet Vol. 11.3 fl (6.2-12.0); Monocyte# 0.33 X10^3/uL; Monocyte% 4.1 % (0-10); NRBC Flagged by Analyzer 0 % (0-5); Neutrophil # 6.41 X10^3/uL (2.7-7.7); Neutrophil % 79.8 % (47-70); Platelet Count 177 K/mm3 (150-450); RBC Distribution Width CV 12.6 % (11.6-14.6); RBC Distribution Width SD 40.9 fl (35.1-43.9); Red Blood Count 4.22 M/mm3 (4.2-5.4)
== END ==
PROVIDERS: Referring Provider Obstetrics & Gynecology; Visit Provider Obstetrics & Gynecology
DX: Z34.92 Encounter for supervision of normal pregnancy, unspecified, second trimester (principal); Z3A.24 24 weeks gestation of pregnancy
CPT/HCPCS: 36415; 85025; 86850; 86900; 86901

== ENCOUNTER 2021-01-02 23:10 | Outpatient (CLI) | payer MEDICAID, SELFPAY ==
[2020-12-28 09:04] VITALS: BMI 31.3
[2021-01-02 23:22] VITALS: BMI 29.7
[2021-01-02 23:37] VITALS: BP 128/74; PULSE 78; TEMP 36.7; O2SAT 98
[2021-01-02 23:58] LABS: ROM Internal Control Test YES-OK TO RESULT pt. (Internal QC); ROM Patient Test Negative (Negative)
[2021-01-03 00:39] VITALS: BP 128/74; PULSE 78; RESP 18; TEMP 36.7
--- NOTE | 2021-01-05 07:50 | OB.TRI.HP_ITS ---
HPI - General HPI Narrative SCOTT GOMEZ, is a 30 F who presents questionable loss of fluid. She states she was in her kitchen and felt several trickles and they were mucousy but she has a history of a 28-week P PROM therefore she presented for evaluation. Patient denies any persistent leaking or any regular contractions. She denies any vaginal bleeding admits good movement. Maternal Data Information MIHIR Calculator Estimated Delivery Date Method Current WG Current Estimate 03/19/21 LMP (Certain) 29w 4d PFSH Medical History (Updated 01/05/21 @ 07:[address] Umm Uribe MD) Rheumatoid arthritis Home Medications vitamin#30 30 mg iron-10 mg iron-folic acid 1 mg-omg3 capsule 1 cap PO DAILY cap 09/08/18 [History Last Taken 01/01/21 21:00] blood sugar diagnostic #100 each 11/03/20 [Rx Last Taken Unknown] blood-glucose meter #1 each 11/03/20 [Rx Last Taken Unknown] lancets 33 gauge #100 each 11/03/20 [Rx Last Taken Unknown] folic acid 0.8 mg PO DAILY 01/03/21 [History Last Taken 01/01/21 21:00] Allergy/AdvReac Type Severity Reaction Status Date / Time No Known Allergies Allergy Verified 01/02/21 23:26 Family History Grandmother Breast cancer Cancer Brain Grandfather Cancer Pancreatic Surgical History H/O section Social History adopted: No household members: family housing: house number of children: 5 Smoking Status: Never smoker alcohol intake: never substance use type: does not use caffeine: Yes what type of physical activity do you participate in: walking seatbelt use: always do you feel safe at home: Yes additional social history: Walter Eid Patient works from home History 8 Elective abortions Hx Para 6 Spontaneous abortions 1 Hx # Term Pregnancies Ectopic pregnancies Hx # Pregnancies Multiple births # of living children 5 Past Pregnancies Del. Date Name GA/Weeks Outcome Route Bth Weight Infant Gen Labor Lgth Anesthesia Del Locatn Provider FOB Unknown 2008 Sadaf 41 live - full term 7lbs Male Home Director Labor Standards Unknown 2010 Hussein 42 live - full term 8lbs 13oz Male Home Director Labor Standards Unknown 2011 Keaton 39 live - full term 8lbs 5oz Male Home Director Labor Standards Unknown 2013 Jessica 40 live - full term 7lbs 14oz Femal e Home Director Labor Standards Unknown 2015 Arianna 27 live - 1lbs 9.7oz Fema le 01/24/19 Melvin 40 live - full term 7lbs 10oz Male harlan Delivery Date: No notes to display Delivery Date: No notes to display Delivery Date: No notes to display Delivery Date: No notes to display Delivery Date: PROM at 27, breech, chorioamnionitis Umm Uribe Delivery Date: 01/24/19 H. flu sepsis, meconium aspiration- 1 week age Umm Uribe Visit Details Expected Delivery Route/Plan with plan weekly NSTs and growth us at 36 weeks patient counseled regarding risks/benefits of trial of labor versus repeat . ACOG/uptodate education given to patient. 95 % likelihood of success per calculator TOLAC consent form signed: [] Labor Preferences- labor support person: Mike labor intervention preferences: minimal pain management options preferred: minimal intervention cut cord/dad catch: yes : yes PP control planned: [] discussed possible routes of delivery and associated risks: [] special requests: [] Plans flu vaccine: declined tdap vaccine: declined rhogam: given 12/28 LARC form signed: [] movement and labor precautions reviewed. Problem list reviewed and updated with the most current plan of care details and appropriate orders placed. Relevant counseling for the gestational age provided. Continue routine care and follow up unless otherwise noted in visit notes/problem list details OB Flowsheet Initial Weight: 167 lb Date -?-?-?-?-?-?-?-?-?-?-?-?- EGA Weight BP Urine Prot -?-?-?-?-?-?-?-?-?-?-?-?- Glucose FHR FuHt Pres Dilation -?-?-?-?-?-?-?-?-?-?-?-?- Effaced St Visit Note 08/07/20 -?-?-?-?-?-?-?-?-?-?-?-?- 8w 0d 167 lb (+0 oz) 110/76 -?-?-?-?-?-?-?-?-?-?-?-?- 170 -?-?-?-?-?-?-?-?-?-?-?-?- SM- no vb lof cr amping doing well. CRL cons with LMP 1.45cm 09/08/20 -?-?-?-?-?-?-?-?-?-?-?-?- 12w 4d 170 lb (+3 lb) 120/74 Negative -?-?-?-?-?-?-?-?-?-?-?-?- Negative 155 -?-?-?-?-?-?-?-?-?-?-?-?- SM- no vb crampi ng feeling good, low anxiety. had discussion with and declining MFM consultation, but open to increased testing at end of . 10/06/20 -?-?-?-?-?-?-?-?-?-?-?-?- 16w 4d 176 lb (+9 lb) 124/70 -?-?-?-?-?-?-?-?-?-?-?-?- 150 16 -?-?-?-?-?-?-?-?-?-?-?-?- SM- no vb lof no regular ctx 11/03/20 -?-?-?-?-?-?-?-?-?-?-?-?- 20w 4d 185 lb (+18 lb) 124/68 Negative -?-?-?-?-?-?-?-?-?-?-?-?- Negative 150 20 -?-?-?-?-?-?-?-?-?-?-?-?- SM- no vb lof oc casional palpitations discussed anatomy us 11/30/20 -?-?-?-?-?-?-?-?-?-?-?-?- 24w 3d 194 lb (+27 lb) 130/70 Negative -?-?-?-?-?-?--?-?-?-?-?-?- Negative 140 24 -?-?-?-?-?-?-?-?-?-?-?-?- SM- no vb SM- no vb, lof good fm no re gular ctx 12/28/20 -?-?-?-?-?-?-?-?-?-?-?-?- 28w 3d 197 lb (+30 lb) 100/70 -?-?-?-?-?-?-?-?-?-?-?-?- 140 30 -?-?-?-?-?-?-?-?-?-?-?-?- SM- no vb lof go od fm no regular ctx doing well plan testing starting at 36 weeks 01/02/21 -?-?-?-?-?-?-?-?-?-?-?-?- 29w 2d 201 lb 4.513 oz (+34 lb 4.513 oz) 128/74 128/74 -?-?-?-?-?-?-?-?-?-?-?-?- -?-?-?-?-?-?-?-?-?-?-?-?- ROS Constitutional Constitutional: Reports as per HPI Cardiovascular Cardiovascular: Reports systems reviewed and no addt'l complaints, except as documented Respiratory/Chest Respiratory/Chest: Reports systems reviewed and no addt'l complaints, except as documented Gastrointestinal Gastrointestinal: Reports as per HPI Physical Exam Narrative Ultrasound performed spontaneous movement as well as normal ABEL seen. Const alert, oriented x3 and no apparent distress HEENT Head and Scalp: normocephalic and atraumatic Neck full ROM and no lymphadenopathy Chest inspection of chest normal Resp normal respiratory effort GI GI Narrative: gravid, abdomen nontender, AGA Neuro no focal motor deficits NST FHR Rate Baby A Baseline: 140 Variability:: Moderate Accelerations:: 15 x 15 Decelerations:: None NST Reactive:: Yes FHR Category:: Category I Uterine Activity:: no regular Assessment & Plan Assessment/Plan (1) Supervision of high risk , antepartum: (2) : QUALIFIERS: Weeks of gestation: 24 weeks Qualified Code(s): Z3A.24 - 24 weeks gestation of (3) Intact amniotic membranes: QUALIFIERS: Trimester: third trimester Qualified Code(s): Z34.93 - Encounter for supervision of normal , unspecified, third trimester Multi Select Codes Visit Charges Office Visit/Consults: 77449 OV L3 Est Urinary/Genital Urinary/Genital CPT Codes: 30867-28 non-stress test Interp
== END 2021-01-03 00:40 ==
LOC: WPOUT 23:16 → OBT 23:17
PROVIDERS: Visit Provider Obstetrics & Gynecology
DX: O09.892 Supervision of other high risk pregnancies, second trimester (principal); O26.892 Other specified pregnancy related conditions, second trimester; M06.9 Rheumatoid arthritis, unspecified; O34.219 Maternal care for unspecified type scar from previous cesarean delivery; Z3A.24 24 weeks gestation of pregnancy
CPT/HCPCS: 59025; 59050; 84112; 99218; G0378

== ENCOUNTER → 2021-01-05 14:54 | Outpatient (CLI) | payer MEDICAID, SELFPAY ==
[2021-01-02 23:22] VITALS: BMI 29.7
[2021-01-05 15:23] LABS: Absolute Lymphocyte Count 1.15 X10^3/uL (0.83-4.51); Basophil# 0.01 X10^3/uL; Basophil% 0.1 % (0-1); Eosinophil# 0.09 X10^3/uL; Eosinophils% 0.9 % (0-5); Hematocrit 36.8 % (37-47); Hemoglobin 12.3 g/dL (12.0-15.0); Lymphocyte # 1.15 X10^3/ul (0.83-4.51); Lymphocyte % 11.9 % (19-41); Mean Corp Hgb Conc 33.4 g/dL (32-36); Mean Corpuscular Hgb 29.6 pg (27.0-32.0); Mean Corpuscular Volume 88.5 fL (81-99); Mean Platelet Vol. 11.2 fl (6.2-12.0); Monocyte# 0.43 X10^3/uL; Monocyte% 4.4 % (0-10); NRBC Flagged by Analyzer 0 % (0-5); Neutrophil # 7.97 X10^3/uL (2.7-7.7); Neutrophil % 82.2 % (47-70); Platelet Count 172 K/mm3 (150-450); RBC Distribution Width CV 12.6 % (11.6-14.6); RBC Distribution Width SD 40.8 fl (35.1-43.9); Red Blood Count 4.16 M/mm3 (4.2-5.4); White Blood Count 9.7 K/mm3 (4.4-11.0)
[2021-01-05 15:54] LABS: ALB/GLOB Ratio 0.9 RATIO (0.9-2.4); AST(SGOT) 14 U/L (15-37); Alanine Aminotransfer ALT/SGPT 23 U/L (13-56); Alkaline Phosphatase 58 U/L (45-117); Anion Gap 8 (5-15); BUN 8 mg/dL (7-18); BUN/Creat Ratio 24.1 RATIO (10-20); Calcium,Total 8.5 mg/dL (8.5-10.1); Chloride 106 mmol/L (98-107); Creatinine, Serum 0.33 mg/dL (0.55-1.02); EST Glomerular Filtration Rate 243 mL/min (>60); Est Glom Filt Rate - Afr Amer 294 mL/min (>60); Globulin 3.4 g/dL (2.2-4.2); Glucose 84 mg/dL (74-106); Potassium 3.8 mmol/L (3.5-5.1); Protein, Total 6.4 g/dL (6.4-8.2); Sodium Level 138 mmol/L (136-145)
== END ==
PROVIDERS: Referring Provider Obstetrics & Gynecology; Visit Provider Obstetrics & Gynecology
DX: O26.892 Other specified pregnancy related conditions, second trimester (principal); L29.9 Pruritus, unspecified; Z3A.24 24 weeks gestation of pregnancy
CPT/HCPCS: 80053; 85025

== ENCOUNTER → 2021-02-09 11:01 | Outpatient (CLI) | payer MEDICAID, SELFPAY ==
[2021-02-09 09:39] VITALS: BMI 29.7
[2021-02-09 11:19] LABS: Absolute Lymphocyte Count 1.11 X10^3/uL (0.83-4.51); Absolute Neutrophil Count 7.6 X10^3/uL (2.0-7.7); Basophil# 0.02 X10^3/uL; Basophil% 0.2 % (0-1); Eosinophil# 0.09 X10^3/uL; Hematocrit 36.2 % (37-47); Hemoglobin 12.3 g/dL (12.0-15.0); Lymphocyte # 1.11 X10^3/ul (0.83-4.51); Lymphocyte % 11.8 % (19-41); Mean Corpuscular Hgb 29.4 pg (27.0-32.0); Mean Corpuscular Volume 86.6 fL (81-99); Mean Platelet Vol. 10.9 fl (6.2-12.0); Monocyte# 0.45 X10^3/uL; Monocyte% 4.8 % (0-10); NRBC Flagged by Analyzer 0 % (0-5); Neutrophil # 7.61 X10^3/uL (2.7-7.7); Platelet Count 168 K/mm3 (150-450); RBC Distribution Width CV 12.3 % (11.6-14.6); RBC Distribution Width SD 38.7 fl (35.1-43.9); Red Blood Count 4.18 M/mm3 (4.2-5.4); White Blood Count 9.4 K/mm3 (4.4-11.0)
[2021-02-09 11:44] LABS: ALB/GLOB Ratio 0.9 RATIO (0.9-2.4); AST(SGOT) 19 U/L (15-37); Alanine Aminotransfer ALT/SGPT 21 U/L (13-56); Alkaline Phosphatase 86 U/L (45-117); Anion Gap 6 (5-15); BUN 6 mg/dL (7-18); BUN/Creat Ratio 17.1 RATIO (10-20); Calcium,Total 8.3 mg/dL (8.5-10.1); Chloride 108 mmol/L (98-107); Creatinine, Serum 0.35 mg/dL (0.55-1.02); EST Glomerular Filtration Rate 228 mL/min (>60); Est Glom Filt Rate - Afr Amer 276 mL/min (>60); Globulin 3.5 g/dL (2.2-4.2); Glucose 105 mg/dL (74-106); Potassium 3.5 mmol/L (3.5-5.1); Protein, Total 6.5 g/dL (6.4-8.2); Sodium Level 137 mmol/L (136-145)
== END ==
PROVIDERS: Referring Provider Obstetrics & Gynecology; Visit Provider Obstetrics & Gynecology
DX: O09.93 Supervision of high risk pregnancy, unspecified, third trimester (principal); O26.893 Other specified pregnancy related conditions, third trimester; O99.713 Diseases of the skin and subcutaneous tissue complicating pregnancy, third trimester; L29.9 Pruritus, unspecified; Z67.91 Unspecified blood type, Rh negative; Z3A.33 33 weeks gestation of pregnancy
CPT/HCPCS: 36415; 80053; 85025; 86850; 86870; 86900; 86901

== ENCOUNTER → 2021-02-20 09:02 | Outpatient (CLI) | payer MEDICAID, SELFPAY ==
[2020-12-28 09:04] VITALS: BMI 31.3
[2021-02-09 09:39] VITALS: BMI 29.7
--- NOTE | 2021-02-20 09:04 | US_ITS ---
STUDY: SECOND AND THIRD TRIMESTER OBSTETRICAL ULTRASOUND - LIMITED REASON FOR EXAM: Female, 30 years old . growth. LMP: 06/12/2020. PRIOR ULTRASOUND: Comparison is made with prior study dated 12/25/2020. TECHNIQUE: Transabdominal TECHNICAL QUALITY: Adequate. FINDINGS: There is a single intrauterine fetus. The fetus is in a cephalic presentation. There is demonstrated cardiac activity with a heart rate of 133 bpm. There is a normal amniotic fluid volume. The largest amniotic fluid pocket measures 3 cm x 2.6 cm. The amniotic fluid index (ABEL) is 9.5 cm. The placenta is anterior in location and is not low lying. There are Grade 2 placental changes. The cervix measures 5.3 cm in length. BIOMETRY: BPD: 8.85 cm: 35 weeks, 5 days HC: 33.21 cm: 37 weeks, 6 days AC: 33.86 cm: 37 weeks, 5 days FL: 7.09 cm: 36 weeks, 2 days Age by LMP: 36 weeks, 1 days. MIHIR by LMP: 03/19/2021. age by prior US: 36 weeks, 6 days. MIHIR by prior US: 03/14/2021. age by current US: 36 weeks, 6 days. MIHIR by current US: 03/14/2021. Estimated weight: 3139 grams, +/- 471 grams, 78 percentile. US/OB Limited With Biometrics IMPRESSION: Single live intrauterine gestation with a mean gestational age of 36 weeks and 6 days. renal pelvic dilatation measuring 4 mm. Electronically Signed: Jesús Arthur MD at 12:19 EDT , Service support ,
== END ==
PROVIDERS: Referring Provider Obstetrics & Gynecology; Visit Provider Obstetrics & Gynecology
DX: Z34.83 Encounter for supervision of other normal pregnancy, third trimester (principal); Z3A.36 36 weeks gestation of pregnancy; Z87.59 Personal history of other complications of pregnancy, childbirth and the puerperium
CPT/HCPCS: 76816

== ENCOUNTER → 2021-02-23 10:50 | Outpatient (CLI) | payer MEDICAID, SELFPAY ==
[2021-02-23 09:57] VITALS: BMI 29.7
[2021-02-23 11:41] LABS: ALB/GLOB Ratio 0.8 RATIO (0.9-2.4); AST(SGOT) 21 U/L (15-37); Alanine Aminotransfer ALT/SGPT 22 U/L (13-56); Albumin, Serum 3.1 g/dL (3.2-5.0); Alkaline Phosphatase 114 U/L (45-117); Anion Gap 5 (5-15); BUN 8 mg/dL (7-18); BUN/Creat Ratio 22.9 RATIO (10-20); Calcium,Total 8.4 mg/dL (8.5-10.1); Chloride 106 mmol/L (98-107); Creatinine, Serum 0.35 mg/dL (0.55-1.02); EST Glomerular Filtration Rate 228 mL/min (>60); Est Glom Filt Rate - Afr Amer 276 mL/min (>60); Globulin 3.7 g/dL (2.2-4.2); Glucose 90 mg/dL (74-106); Potassium 3.8 mmol/L (3.5-5.1); Protein, Total 6.8 g/dL (6.4-8.2); Sodium Level 135 mmol/L (136-145)
== END ==
PROVIDERS: Referring Provider Obstetrics & Gynecology; Visit Provider Obstetrics & Gynecology
DX: O26.893 Other specified pregnancy related conditions, third trimester (principal); L29.9 Pruritus, unspecified; Z3A.33 33 weeks gestation of pregnancy
CPT/HCPCS: 36415; 80053; 87081

== ENCOUNTER 2021-03-13 06:52 | Inpatient (IN) | payer MEDICAID, SELFPAY ==
[2021-03-09 09:48] VITALS: BMI 29.7
[2021-03-13] VITALS (29 sets, daily range): BP systolic 102–155; BP diastolic 57–82; PULSE 68–83; TEMP 36.3–37.6; O2SAT 95–98; BMI 31.1
[2021-03-13] MEDS: Lactated Ringers 1,000 ML 50 ML IV (07:35)
[2021-03-13 08:00] LABS: Absolute Lymphocyte Count 1.34 X10^3/uL (0.83-4.51); Absolute Neutrophil Count 6.3 X10^3/uL (2.0-7.7); Basophil# 0.02 X10^3/uL; Basophil% 0.2 % (0-1); Eosinophil# 0.09 X10^3/uL; Eosinophils% 1.1 % (0-5); Hemoglobin 12.5 g/dL (12.0-15.0); Lymphocyte # 1.34 X10^3/ul (0.83-4.51); Lymphocyte % 16.3 % (19-41); Mean Corp Hgb Conc 33.8 g/dL (32-36); Mean Corpuscular Hgb 29.4 pg (27.0-32.0); Mean Corpuscular Volume 87.1 fL (81-99); Mean Platelet Vol. 11.2 fl (6.2-12.0); Monocyte# 0.35 X10^3/uL; Monocyte% 4.3 % (0-10); NRBC Flagged by Analyzer 0 % (0-5); Neutrophil # 6.32 X10^3/uL (2.7-7.7); Neutrophil % 77.1 % (47-70); Platelet Count 175 K/mm3 (150-450); RBC Distribution Width CV 12.5 % (11.6-14.6); RBC Distribution Width SD 39.3 fl (35.1-43.9); Red Blood Count 4.25 M/mm3 (4.2-5.4); White Blood Count 8.2 K/mm3 (4.4-11.0)
[2021-03-13] MEDS: Oxytocin 30 units/NS 500 ml 30 UNITS/500 ML IV.SOLN IV (08:08)
[2021-03-13] MEDS: 0.9% Normal Saline Single 100 ML IV.SOLN. INTRA-UTER (08:24)
--- NOTE | 2021-03-13 09:32 | PCM.HP.BLA ---
History and Physical Date of Admission: 03/13/21 Vital Signs 09/08/20 12:06 03/09/21 09:48 03/09/21 09:48 Height 5 ft 9 in Weight: 210 lb BMI 25.1 31.0 29.7 BP 136/82 H Intake Visit Reasons: 38 WK OB/NST Chief Complaint: est ob NST Fiscal Analyst Required: No Is patient in pain?: No Allergies No Known Allergies Allergy (Verified 01/02/21 23:26) Medications vitamin#30 30 mg iron-10 mg iron-folic acid 1 mg-omg3 capsule 1 cap PO DAILY cap 09/08/18 [History Confirmed 03/09/21] folic acid 0.8 mg PO DAILY 01/03/21 [History Confirmed 03/09/21] Last Menstral Period: 06/12/20 Zika: Zika virus screening: Negative [facility] Medical History pyelectasis Rheumatoid arthritis Surgical History H/O section Family History Grandmother Breast cancer Cancer Brain Grandfather Cancer Pancreatic Social History adopted: No household members: family housing: house number of children: 5 Smoking Status: Never smoker alcohol intake: never substance use type: does not use caffeine: Yes what type of physical activity do you participate in: walking seatbelt use: always do you feel safe at home: Yes additional social history: Walter Eid Patient works from home Pregancy History 8 Elective abortions Hx Para 6 Spontaneous abortions 1 Hx # Term Pregnancies Ectopic pregnancies Hx # Pregnancies Multiple births # of living children 5 Past Pregnancies Del. 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 Unknown 2010 Hussein 42 live - full term 8lbs 13oz Male Home Petroleum Refinery Operator Unknown 2011 Keaton 39 live - full term 8lbs 5oz Male Home Petroleum Refinery Operator Unknown 2013 Jessica 40 live - full term 7lbs 14oz Female Home Petroleum Refinery Operator Unknown 2015 Arianna 27 live - 1lbs 9.7oz Female 01/24/19 Melvin 40 live - full term 7lbs 10oz Male harlan Delivery Date: No notes to display Delivery Date: No notes to display Delivery Date: No notes to display Delivery Date: No notes to display Delivery Date: PROM at 27, breech, chorioamnionitis Umm Uribe Delivery Date: 01/24/19 H. flu sepsis, meconium aspiration- 1 week age Umm Uribe HPI 38 WK OB/NST Details: SCOTT GOMEZ is a 30 year old who presents for IOL secondary to loss. she has a previous csection but had a successful last . OB Visit MIHIR Calculator Estimated Delivery Date Method Current WG Current Estimate 03/19/21 LMP (Certain) 38w 4d Expected Delivery Route/Plan with SM, deliver at 39-40 weeks plan weekly NSTs and growth us at 36 weeks patient counseled regarding risks/benefits of trial of labor versus repeat . ACOG/uptodate education given to patient. 95 % likelihood of success per calculator TOLAC consent form signed: [] Labor Preferences- labor support person: Mike labor intervention preferences: minimal pain management options preferred: minimal intervention cut cord/dad catch: yes : yes PP control planned: [] discussed possible routes of delivery and associated risks: [] special requests: [] Specific Issue/Plans flu vaccine: declined tdap vaccine: declined rhogam: given 12/28 LARC form signed: [] movement and labor precautions reviewed. Problem list reviewed and updated with the most current plan of care details and appropriate orders placed. Relevant counseling for the gestational age provided. Continue routine care and follow up unless otherwise noted in visit notes/problem list details Initial Weight: 167 lb Date EGA Weight BP Urine Prot Glucose FHR FuHt Pres Dilation Effaced St Visit Note 08/07/20 8w 0d 167 lb (+0 oz) 110/76 170 SM- no vb lof cramping doing well. CRL cons with LMP 1.45cm 09/08/20 12w 4d 170 lb (+3 lb) 120/74 Negative Negative 155 SM- no vb cramping feeling good, low anxiety. had discussion with and declining MFM consultation, but open to increased testing at end of . 10/06/20 16w 4d 176 lb (+9 lb) 124/70 150 16 SM- no vb lof no regular ctx 11/03/20 20w 4d 185 lb (+18 lb) 124/68 Negative Negative 150 20 SM- no vb lof occasional palpitations discussed anatomy us 11/30/20 24w 3d 194 lb (+27 lb) 130/70 Negative Negative 140 24 SM- no vb SM- no vb, lof good fm no regular ctx 12/28/20 28w 3d 197 lb (+30 lb) 100/70 140 30 SM- no vb lof good fm no regular ctx doing well plan testing starting at 36 weeks 01/02/21 29w 2d 201 lb 4.513 oz (+34 lb 4.513 oz) 128/74 128/74 01/11/21 30w 3d 200 lb (+33 lb) 126/70 Negative Negative 140 30 SM- no vb lof good fm no regular ctx, discussed POC around delivery and IOL ta 39-40 weeks 01/29/21 33w 0d 205 lb (+38 lb) 122/76 Negative Negative 140 33 Cephalic SM- no vb lof good fm no regular ctx co heartburn 02/09/21 34w 4d 207 lb (+40 lb) 116/82 Negative Negative 145 35 Cephalic SM- no vb lof good fm no reuglar ctx, co vaginal odor. repeat bile acids today and cmp 02/23/21 36w 4d 211 lb (+44 lb) 112/80 130 36 Cephalic SM- no vb lof good fm no reuglar ctx still having itching all over, no rash. repeat lfts and bile acids. 03/02/21 37w 4d 211 lb (+44 lb) 106/70 Negative Negative SM- no vb lof good fm no reuglar ctx discussed IOL plan by 40 weeks 03/09/21 38w 4d 210 lb (+43 lb) 136/82 130 37 Cephalic SM- no vb lof good fm nor egular ctx plan IOL 39 weeks SM- no vb lof good fm no regular ctx plan IOL 39 weeks ACOG First Trimester First Trimester: Second Trimester Second Trimester: Signs and Symptoms of Labor, Selecting a care provider, Reproductive Life Planning & Contreception, Care Planning, Tobacco Cessation, Depression/Anxiety and Intimate Partner Violence Third Trimester Third Trimester: Pain Management Plans, Labor support person(s), Immediate Larc, Movement Monitoring and Feeding Yes ; Discussed Trial of Labor after Counseling and Discussed Circumcision preference Diagnostics Diagnostics Diagnostics: Blood Type O NEGATIVE Antibody Screen POSITIVE H Hgb 12.3 g/dL (12.0-15.0) Hct 36.2 % (37-47) L Details: HIV: Urine Culture: Sequential Screen: NIPT Screen: ROS Const Reports system reviewed and no additional complaints, except as documented Card Reports system reviewed and no additional complaints, except as documented Resp Reports system reviewed and no additional complaints, except as documented GI Reports system reviewed and no additional complaints, except as documented and Reports nausea Reports system reviewed and no additional complaints, except as documented Musc Reports system reviewed and no additional complaints, except as documented Exam Const General: cooperative, healthy appearing, comfortable and anxious HENMT Head: normal to inspection Nose: external nose normal Face and sinus: normal facial exam Neck Neck: normal visual inspection, full ROM and no lymphadenopathy Thyroid: thyroid normal Chest Chest palpation & inspection: normal inspection of the chest Resp Effort & Inspection: normal respiratory effort GI Inspection: normal to inspection Palpation: soft and other (gravid uterus) Other: vertex and appropriate size for gestational age Other: Cervical Exam: Extrem General: pedal edema Office Procedures Non-stress Test Non-Stress Test Indications for Monitoring: Yes previous Heart Rate Baseline: 130 Heart Rate Variability: moderate Movement: Present Heart Rate Accelerations: Present Decelerations: Absent Contractions: Absent Impression: Yes Reactive Non-Stress Test Category 1 Coding Level of Care Code Off vis,est,level 3 Diagnoses pyelectasis Pruritus of O99.719; L29.9 History of Z87.59 Family history of Down syndrome Z82.79 Family history of Prader-Willi syndrome Z82.79 H/O delivery, currently O09.899 Supervision of high risk , antepartum O09.90 Z3A.38 Weeks of gestation: 38 weeks H/O section Z98.891 RhD negative Z67.91 Atypical squamous cells of undetermined significance (ASC-US) on cervical Pap smear R87.610 CPT Codes Non-Stress Test (96241) Assessment and Plan Assessment and Plan (1) pyelectasis: Status: Acute Comment: mild 4mm. will inform trade show coordinator at delivery (2) Pruritus of : Status: Acute Comment: cmp bile acids ordered, nl bile acids (3) History of : Status: Acute Comment: @ 1 week, H. Flu infection, meconium aspiration. patient declined MFM consult. plan weekly nsts and growth us q 4 weeks after 36. discussed and plan prophylactic antibiotics in labor. (4) Family history of Down syndrome: Status: Acute Comment: Mike's sister (5) Family history of Prader-Willi syndrome: Status: Acute Comment: Mike's nephew born 03/2020 (6) H/O delivery, currently : Status: Acute Comment: subsequent deliveries term. check serial cervical lengths Orders: Orders: OB NST Today (7) Supervision of high risk , antepartum: Status: Acute Comment: PRR MIHIR: 03/19/2021 boy [facility]: Hussein Talavera Levi, Alexandria, Veronica, Luke(dec) Spouse: Mike Orders: Orders: OB NST Today (8) : Status: Acute Qualifiers: Weeks of gestation: 38 weeks Qualified Code(s): Z3A.38 - 38 weeks gestation of Comment: genetic- low risk; declines carrier and ntd screening. anatomy reviewed. home BS testing WNL.plan weekly NSTs and growth us at 36 weeks (9) H/O section: Status: Resolved Comment: Successful 2018 (10) RhD negative: Status: Acute Comment: O negative, rhogam PRN Rhogam given 12/28/20 (11) Atypical squamous cells of undetermined significance (ASC-US) on cervical Pap smear: Status: Acute Comment: HPV negative-Pap in 3 years Patient presents IOL, plan management for with fb and Pitocin. Pain management: Prefers minimal intervention but open to epidural if needs. GBS [negative]. due to previous loss due to sepsis, discussed prophylactic antibiotics in labor. Patient declined, none routinely indicated based on previous infecitous organism Management of any complications: see PL I have reviewed the [facility] and made any clinically relevant updates.
--- NOTE | 2021-03-13 19:51 | EX.PCM.OBRPT ---
Assessment & Plan (1) RhD negative: COMMENT: O negative, rhogam PRN Rhogam given 12/28/20 (2) : QUALIFIERS: Weeks of gestation: 38 weeks Qualified Code(s): Z3A.38 - 38 weeks gestation of COMMENT: genetic- low risk; declines carrier and ntd screening. anatomy reviewed. home BS testing WNL.plan weekly NSTs and growth us at 36 weeks (3) Supervision of high risk , antepartum: COMMENT: PRR MIHIR: 03/19/2021 alia June PC: Hussein Talavera Levi, Alexandria, Veronica, Luke(dec) Spouse: Mike (4) History of : COMMENT: @ 1 week, H. Flu infection, meconium aspiration. patient declined MFM consult. plan weekly nsts and growth us q 4 weeks after 36. discussed and plan prophylactic antibiotics in labor. (5) H/O section: COMMENT: Successful 2018 (6) pyelectasis: COMMENT: mild 4mm. will inform lumber scaler at delivery Maternal Data Information MIHIR Calculator Estimated Delivery Date Method Current WG Current Estimate 03/19/21 LMP (Certain) 39w 1d Details Operative Information Date of Procedure: 03/13/21 Pre-Operative Diagnosis: iol h/o demise Post-Operative Diagnosis: same Vaginal Delivery Maternal Presentation Type of Induction: Pitocin and Tripp Bulb Medical Reason for Induction: demise (previous ) Operative Information Date of Procedure: 03/13/21 Surgery / Procedure Performed: Type of Anesthesia: None Special Medications: none Estimated Blood Loss: 100 Fluids Replaced: crystalloid Findings Description of Procedure: Patient began pushing and delivered the head in the JOSE presentation. The head was delivered atraumatically . The anterior and posterior shoulders delivered without complication followed by the rest of the infant and the was placed on the maternal abdomen. Delayed cord clamping was employed for approximately 60 seconds. Cord was clamped and cut and gentle traction was applied to the cord and the placenta delivered spontaneously immediately following it was noted to be intact with three-vessel cord. The perineum and vagina were inspected and noted to have no laceration. EBL was 100 cc. Patient and infant tolerated delivery well. Presentation: JOSE Amniotic Membrane Rupture Type: Spontaneous Amniotic Fluid Description: Clear Placental Delivery Description: Spontaneous Placenta Disposition: [facility] Cord Vessel Description: 3 Vessels Cord Entanglement: None Infant A Gender: Male Delayed Cord Clamping: Yes Post Vaginal Delivery Medications Given After Delivery: IV Pitocin Episiotomy Description: None Laceration: None Complication Complications: None Procedures Urinary/Genital [id number]: [id number] Vaginal Delivery+PP Care([facility])
--- NOTE | 2021-03-13 19:54 | PCM.DC ---
Discharge Instructions Diet Discharge Diet: No restrictions Activity Discharge Activity: Return to Normal Activity, May Not Drive (while taking narcotic pain medications.) and May Shower May resume sexual activity in: 4-6 weeks Dressing / Incision Call your doctor if your incision/area has: Continuous Slow Oozing, Sudden Increased Bleeding, Increased Pain/ Swelling, Increased Redness and Foul Smelling Discharge Follow Up Care Please Follow Up With: Umm Uribe MD When: Call [phone] to make an appointment with your doctor in 6 weeks. If you had elevated blood pressure or 4th degree laceration, you will need to be seen in 2 weeks. Test Results: Test results from this visit will be discussed in further detail at your follow-up appointment, if applicable. Discharge Plan Admission Admit Date/Time: 03/13/21 06:52 Attending Provider: Umm Uribe Primary Care Provider: Care Physician,Mitzy Primary Discharge Orders/Prescriptions Prescriptions: No Action vitamin#30 30 mg iron-10 mg iron-folic acid 1 mg-omg3 capsule 30 mg iron-10 mg iron-1 mg capsule 1 cap PO DAILY RF: 0 folic acid 800 mcg Tablet 0.8 mg PO DAILY RF: 0
[2021-03-13] MEDS: 0.9% Saline Lock 10 ML Syringe IV (21:46)
--- NOTE | 2021-03-13 22:55 | NURSING ---
this RN gave report to yahir CARRERA . that rn to assume care of pt at this time.
[2021-03-14 00:06] VITALS: TEMP 36.4
[2021-03-14 00:07] VITALS: BP 122/65; PULSE 65
[2021-03-14 00:10] VITALS: BP 122/65; PULSE 65; RESP 18; TEMP 36.4
== END 2021-03-14 02:07 | disposition home or self-care (01) | DRG 560 ==
PROVIDERS: Admitting Provider Obstetrics & Gynecology; Visit Provider Obstetrics & Gynecology
DX: O34.219 Maternal care for unspecified type scar from previous cesarean delivery (principal); O35.8XX0 Maternal care for other (suspected) fetal abnormality and damage, not applicable or unspecified; O26.893 Other specified pregnancy related conditions, third trimester; L29.9 Pruritus, unspecified; Z67.41 Type O blood, Rh negative; Z87.59 Personal history of other complications of pregnancy, childbirth and the puerperium; Z3A.38 38 weeks gestation of pregnancy; Z37.0 Single live birth
CPT/HCPCS: 59025; 59050; 85025; 85461; 86850; 86900; 86901; 87426; 90384; 99218; J7120; A4216; G0378; J2790

== ENCOUNTER → 2021-05-03 | Outpatient (CLI) | payer MEDICAID, SELFPAY ==
[2021-05-07 16:10] LABS: HPV APTIMA, High Risk Negative (Negative)
== END | disposition home or self-care (01) ==
LOC: LABSPEC 12:49
PROVIDERS: Visit Provider Obstetrics & Gynecology
DX: Z12.4 Encounter for screening for malignant neoplasm of cervix (principal)
CPT/HCPCS: 87624; 88175; G0145

== ENCOUNTER → 2024-05-28 | Outpatient (CLI) | payer SELFPAY ==
[2024-06-02 15:09] LABS: HPV APTIMA, High Risk Negative (Negative)
== END | disposition home or self-care (01) ==
PROVIDERS: Referring Provider Obstetrics & Gynecology; Visit Provider Obstetrics & Gynecology
DX: Z12.4 Encounter for screening for malignant neoplasm of cervix (principal)
CPT/HCPCS: 87624; 88175; G0145